=== PATIENT | male | born 1995 | race Hispanic/Latino ===

== ENCOUNTER 2022-11-07 18:06 | Emergency (ER) | payer OTHER, SELFPAY ==
[2022-11-07 18:07] VITALS: BP 119/83; PULSE 77; RESP 18; TEMP 35.9; O2SAT 99
--- NOTE | 2022-11-07 18:24 | EDS_ITS ---
HPI History of Present Illness Chief Complaint: Abd Pain Detail of Chief Complaint: Intermittent pain left lower quadrant Informant: patient and friend Limited: language barrier (Syrian-speaking individual) Onset/Context/Timing Onset: Month(s) Timing: Intermittent Quality: Pain Location: Left lower quadrant Current Severity: Mild Maximum Severity: Moderate Worsened by: Nothing specific Relieved by: Nothing Associated Symptoms Associated Symptoms: Occasionally nausea. He has noticed intermittent hematuria Narrative Narrative: Patient is 27-year-old Syrian-speaking male who presents with left lower quadrant abdominal pain. He denies fever or chills. He does endorse constipation and hard stools. He denies history of diverticulosis. He has no known history of renal ureterolithiasis. He denies intolerance to greasy or fried foods. He does report intermittent hematuria. He denies pain in his scrotum. He denies back or flank pain. There is no history of trauma. He denies fever, chills night sweats. Denies weight gain or weight loss. He denies headache, visual, ocular auditory symptoms. He denies chest pain, pressure, tightness heaviness etc. He denies shortness of breath. He does have an intermittent cough. He smokes 3 cigarettes/week. He does report the abdominal pain. He denies vomiting. He denies black or maroon-colored stool. Prior similar symptoms: No Recent Illness/Hospitalization: No PFSH PFSH Medical History no medical history no medical history Home Medications hydrocodone-acetaminophen 5-325mg 5mg-325mg 1 tab PO Q6H PRN PRN Pain 3 days #10 TABLETS 11/07/22 [Rx Last Taken Unknown] naproxen 500 mg tablet 500 mg PO BID #14 tabs 11/07/22 [Rx Last Taken Unknown] Allergy/AdvReac Type Severity Reaction Status Date / Time No Known Allergies Allergy Verified 11/07/22 18:07 Surgical History no surgical history no surgical history Social History (Updated 11/07/22 @ 18:[address] Frank Patton MD) household members: other Smoking Status: Light Smoker (<10/day) substance use type: does not use ROS ROS ED Constitutional Constitutional ED: Denies chills, fever(s), subjective or sweats Eyes Eyes: Denies blurry vision, change in vision or diplopia ENT ENT ED: Denies ear pain, rhinorrhea or sore throat Cardiovascular Cardiovascular: Denies chest pain, palpitations or racing heartbeat Respiratory/Chest Respiratory/Chest: Denies cough, dyspnea or dyspnea on exertion Gastrointestinal Gastrointestinal: Reports abdominal pain and constipation; Denies diarrhea, melena or vomiting Genitourinary Genitourinary ED: Reports hematuria; Denies dysuria or urinary frequency Musculoskeletal Musculoskeletal: Denies arthralgias, back pain, myalgias or neck pain Integumentary Denies rash Neurologic Neurologic: Denies headache(s) or weakness Hematologic/Lymphatic Hematologic/Lymphatic: Reports systems reviewed and no addt'l complaints, except as documented EXAM Physical Exam Const Vital Signs: 11/07/22 18:07 Temperature 96.7 F L Temperature Source Temporal Pulse Rate 77 Respiratory Rate 18 Blood Pressure 119/83 H Blood Pressure Mean 95 Pulse Ox 99 Oxygen Delivery Method Room Air Positive well nourished, well developed and obese General Appearance ED: well developed and NAD; Negative for cyanotic, diaphoretic or pallor Nutritional Appearance: obese HEENT Reports moist mucous membranes HEENT Narrative: Head is normocephalic and atraumatic. Ears are normal. Nares are patent. Posterior pharynx is normal. Eyes PERRL and EOMs intact bilaterally General Eye ED: Negative for pale conjunctiva or scleral icterus Neck no lymphadenopathy, supple and no JVD Chest Wall inspection of chest normal and palpation of chest normal Resp normal respiratory effort and clear to auscultation bilaterally Cardio regular rate, regular rhythm, S1 normal heart sound, S2 normal heart sound and no murmurs GI normal to inspection, nondistended, normoactive bowel sounds, non-distended and no masses; Negative for non-tender or hepatosplenomegaly Palpation: soft, tender LLQ and guarding LLQ Back/Spine no CVA tenderness Thoracic Spine / Upper Back: Negative for thoracic spinal tenderness Lumbar Spine / Lower Back: Negative for lumbar spinal tenderness Extremity normal to inspection General Extremety ED: Negative for edema or tenderness General Extremity: Negative for edema Neuro oriented x3, CN's II-XII intact bilaterally and no sensory deficits noted Sensorium / Orientation: alert Motor Exam: strength 5/5 throughout Psych mental status grossly normal Skin no rashes or lesions noted, no wounds and skin turgor normal General Skin Exam: Negative for jaundice or pallor MDM MDM MDM Narrative Medical decision making narrative: Differential diagnosis would be diverticular lightest, colitis, ureterolithiasis abdominal pain of unknown etiology malignancy. Work-up included CT with IV contrast, UA, CBC and BMP. UA was obtained because of his reported intermittent hematuria. Patient declined pain medicine Lab Data Attestation: I reviewed the patient's lab results. Lab results narrative: CBC is normal. Back throat UA is negative. Basic metabolic panel is normal. Microscopic UA is unremarkable with 0-5 RBCs otherwise 0 WBCs, 0 epithelial cells and 0 bacteria. Labs: Laboratory Results - last 24 hr 11/07/22 18:30 WBC 6.4 RBC 5.21 Hgb 15.8 Hct 45.9 MCV 88.1 MCH 30.3 MCHC 34.4 RDW Std Deviation 38.5 RDW Coeff of [place] 12.0 Plt Count 236 MPV 10.0 Immature Gran % (Auto) 0.500 Neut % (Auto) 52.0 Lymph % (Auto) 32.8 [place] % (Auto) 11.4 H Eos % (Auto) 2.5 Baso % (Auto) 0.8 Absolute Neuts (auto) 3.3 Absolute Lymphs (auto) 2.10 Nucleated RBC % 0 Sodium 138 Potassium 3.7 Chloride 108 H Carbon Dioxide 26.0 Anion Gap 4 L BUN 10 Creatinine 0.89 Estim Creat Clear Calc 110.51 Est GFR (MDRD) Af Amer 130 Est GFR (MDRD) Non-Af 107 BUN/Creatinine Ratio 11.2 Glucose 112 H Calcium 8.7 Urine Color Yellow Urine Clarity Clear Urine pH 6.0 Ur Specific [place] 1.025 Urine Protein Negative Urine Glucose (UA) Normal Urine Ketones Negative Urine Occult Blood Negative Urine Nitrite Negative Urine Bilirubin Negative Urine Urobilinogen Normal Ur Leukocyte Esterase Negative Urine RBC 0 SEEN Urine WBC 0-5 SEEN Ur Squamous Epith Cells 0 SEEN Urine Bacteria 0 SEEN Urine Mucus 0 SEEN Radiography Diagnostic Testing: Clinical Impression(s) from Imaging Studies Abdomen CT 11/07/22 20:15 IMPRESSION: undefined Discharge Plan Triage Chief Complaint: Abd Pain Other Complaint: Back ED Provider: Frank Patton Dx/Rx/DC Orders Clinical Impression: Epiploic appendagitis, Omental infarction Instructions: Ischemic Colitis, ED Understanding Colitis Prescriptions: New hydrocodone-acetaminophen [hydrocodone-acetaminophen] 5-325 mg tablet 1 tab PO Q6H PRN PRN (Reason: Pain) 3 Days Qty: 10 0RF naproxen 500 mg tablet 500 mg PO BID Qty: 14 0RF Primary Care Provider: Care Physician,No Primary Referrals: NOT,DEFINED [Non-Staff] - Print Language: Syrian Disposition Disposition: Home, Self Care
[2022-11-07 18:29] VITALS: BMI 31.2
[2022-11-07] MEDS: 0.9% Normal Saline (1000mL) 1,000 ML 1000 ML IV (18:29)
[2022-11-07 18:36] LABS: Bacteria 0 SEEN /hpf (None Seen); Mucous, Urine 0 SEEN /hpf (<or=2+); Red Blood Cells-Urine 0 SEEN /hpf (0-5); Squamous Epithelial Cells - UA 0 SEEN /hpf (0-5)
[2022-11-07 18:38] LABS: Absolute Neutrophil Count 3.3 X10^3/uL (2.0-7.7); Basophil# 0.05 X10^3/uL; Basophil% 0.8 % (0-1); Eosinophil# 0.16 X10^3/uL; Eosinophils% 2.5 % (0-5); Hematocrit 45.9 % (40-54); Hemoglobin 15.8 g/dL (13.0-16.5); Lymphocyte % 32.8 % (19-41); Mean Corp Hgb Conc 34.4 g/dL (32-36); Mean Corpuscular Hgb 30.3 pg (27.0-32.0); Mean Corpuscular Volume 88.1 fL (80-94); Monocyte# 0.73 X10^3/uL; Monocyte% 11.4 % (0-10); NRBC Flagged by Analyzer 0 % (0-5); Neutrophil # 3.34 X10^3/uL (2.7-7.7); Platelet Count 236 K/mm3 (150-450); RBC Distribution Width SD 38.5 fl (35.1-43.9); Red Blood Count 5.21 M/mm3 (4.6-6.2); White Blood Count 6.4 K/mm3 (4.4-11.0)
[2022-11-07 18:40] LABS: Color, Urine Yellow (Yellow); Glucose, Dipstick Normal (Normal); Ketone-Dipstick Negative (Negative); Leukocyte Esterase-Dipstick Negative /ul (Negative); Nitrite-Dipstick Negative (Negative); Occult Blood-Urine Negative /ul (Negative); Protein-Dipstick Negative (Negative); Specific Gravity, Urine 1.025 (1.002-1.030); Urine Bilirubin Dipstick Negative (Negative); Urine Clarity Clear (Clear); Urine Urobilinogen Normal (Normal)
[2022-11-07 18:51] LABS: Anion Gap 4 (5-15); BUN 10 mg/dL (7-18); BUN/Creat Ratio 11.2 RATIO (10-20); Calcium,Total 8.7 mg/dL (8.5-10.1); Chloride 108 mmol/L (98-107); Creatinine, Serum 0.89 mg/dL (0.70-1.30); EST Glomerular Filtration Rate 107 mL/min (>60); Est Glom Filt Rate - Afr Amer 130 mL/min (>60); Estimated Creatinine Clearance 110.51 ml/min; Glucose 112 mg/dL (74-106); Potassium 3.7 mmol/L (3.5-5.1); Sodium Level 138 mmol/L (136-145)
[2022-11-07 18:53] LABS: White Blood Cells 0-5 SEEN /hpf (0-5)
--- NOTE | 2022-11-07 20:15 | CT_ITS ---
EXAM: CT abdomen and pelvis without contrast HISTORY: Left lower quadrant pain TECHNIQUE: No intravenous contrast. A radiation dose optimization technique was used for this scan. COMPARISON: None. LIMITATIONS: Motion artifact. LOWER CHEST: Mild atelectasis in the lung bases bilaterally.. LIVER: Subcentimeter hypodensity in the dome may represent a cyst, but is too small to characterize.. GALLBLADDER: Normal. BILE DUCTS: Normal. PANCREAS: Normal. SPLEEN: Normal. ADRENAL GLANDS: Normal. KIDNEYS/URETERS/BLADDER: Normal. AORTA: Normal caliber. BOWEL/MESENTERY: Few diverticula are without evidence of diverticulitis. A 1.2 cm ovoid focus of fat attenuation is in the left lower quadrant adjacent to the proximal sigmoid colon at the omentum. No definite associated inflammatory fat stranding. No small bowel obstruction. APPENDIX: Normal. PERITONEUM: Normal. REPRODUCTIVE ORGANS: Normal. BONES/SOFT TISSUES: No acute fracture. OTHER: None. CONCLUSION: Few diverticula without evidence of diverticulitis. Questionable epiploic appendagitis or omental infarct in the left lower quadrant. Electronically Signed: Nish Nascimento MD at 21:32 EDT , CT/Abdomen/Pel W ORAL Cont Only IMPRESSION: undefined
--- NOTE | 2022-11-07 22:07 | ED.RN ---
DR ALBRIGHT UNABLE TO SEND SCRIPT TO [facility]. SCRIPTS PRINTED AND PLACED IN [employer] AT [facility]. CALLED, UNABLE TO LEAVE VOICEMAIL.
== END 2022-11-07 21:56 | disposition home or self-care (01) ==
PROVIDERS: Emergency Provider Emergency Medicine; Visit Provider Emergency Medicine
DX: K55.069 Acute infarction of intestine, part and extent unspecified (principal); K63.89 Other specified diseases of intestine; F17.210 Nicotine dependence, cigarettes, uncomplicated; Q43.8 Other specified congenital malformations of intestine; E66.9 Obesity, unspecified
CPT/HCPCS: 74176; 80048; 81001; 85025; 96360; 96361; 99284; J7030